=== PATIENT | female | born 1990 | race Caucasian/White ===

== ENCOUNTER 2020-08-27 00:28 | Observation (INO) ==
[2020-08-27] MEDS ORDERED: Ondansetron 4 mg VIAL 2 MG/ML 2 ml VIAL IV PRN (02:24)
[2020-08-27 03:14] LABS: Hepatitis B Surface Antigen Nonreactive (Nonreactive)
[2020-08-27 03:19] LABS: Hepatitis A Ab IgM Reactive (Negative)
[2020-08-27 03:20] LABS: Hepatitis B Core IgM Nonreactive (Nonreactive)
[2020-08-27 03:31] LABS: Hepatitis C Antibody Negative (Negative)
[2020-08-27] MEDS: Morphine 2 MG/ML SYRINGE IV PRN ×7 (03:33→20:47)
[2020-08-27] MEDS: NS 0.9% 1000 ml BAG 1,000 ML IV SCH ×2 (05:59→18:15)
[2020-08-27] MEDS: Pantoprazole VIAL 40 MG VIAL IV SCH (10:09)
[2020-08-27 11:38] LABS: Hematocrit 37 % (35-47); Hemoglobin 12.3 g/dL (12.0-16.0); Mean Corpuscular HGB Conc 33 g/dL (31-36); Mean Corpuscular Hemoglobin 30 pg (27-31); Mean Corpuscular Volume 88 fL (80-97); Mean Platelet Volume 8.7 fL (7.4-10.4); Platelet Count 263 10^3/uL (150-450); Red Blood Count 4.17 10^6 /uL (3.70-4.87); Red Cell Distribution Width 15 % (10-15); White Blood Count 6.4 10^3/uL (3.5-10.8)
[2020-08-27 11:44] LABS: INR 1.01 (0.82-1.09)
[2020-08-27 11:52] LABS: Albumin 3.2 g/dL (3.2-5.2); Calcium 8.1 mg/dL (8.6-10.3); Total Bilirubin 4.1 mg/dL (0.2-1.0)
[2020-08-27 11:58] LABS: Albumin/Globulin Ratio 1.1 (1-3); EGFR African American 177.8 (>60); EGFR Non-African American 146.9 (>60); Globulin 2.9 g/dL (2-4); Total Protein 6.1 g/dL (6.4-8.9)
[2020-08-27 12:45] LABS: HIV 4th Generation Nonreactive (Nonreactive)
[2020-08-27 13:11] LABS: ABS Basophils 0.2 10^3/ul (0-0.2); ABS Eosinophils 0.1 10^3/ul (0-0.6); ABS Lymphocytes 2.4 10^3/ul (1.0-4.8); ABS Monocytes 0.7 10^3/ul (0-0.8); ABS Neutrophils 2.9 10^3/ul (1.5-7.7); Eosinophil % 1.4 %; Lymphocyte % 38.4 %; Nucleated Red Blood Cells % 0.2
[2020-08-28] MEDS: NS 0.9% 1000 ml BAG 1,000 ML IV SCH (04:43)
[2020-08-28] MEDS: Morphine 2 MG/ML SYRINGE IV PRN ×4 (04:45→13:31)
[2020-08-28 06:35] LABS: ABS Basophils 0.1 10^3/ul (0-0.2); ABS Eosinophils 0.1 10^3/ul (0-0.6); ABS Lymphocytes 2.1 10^3/ul (1.0-4.8); ABS Monocytes 0.7 10^3/ul (0-0.8); ABS Neutrophils 2.1 10^3/ul (1.5-7.7); Eosinophil % 1.5 %; Hematocrit 36 % (35-47); Lymphocyte % 42.1 %; Mean Corpuscular HGB Conc 34 g/dL (31-36); Mean Corpuscular Hemoglobin 30 pg (27-31); Mean Corpuscular Volume 89 fL (80-97); Mean Platelet Volume 9.6 fL (7.4-10.4); Nucleated Red Blood Cells % 0.1; Platelet Count 240 10^3/uL (150-450); Red Cell Distribution Width 15 % (10-15); White Blood Count 5.1 10^3/uL (3.5-10.8)
[2020-08-28 06:49] LABS: Albumin 2.9 g/dL (3.2-5.2); BUN/Creatinine Ratio 9.8 (8-20); Calcium 8.2 mg/dL (8.6-10.3); EGFR African American 173.7 (>60); EGFR Non-African American 143.6 (>60); Globulin 2.9 g/dL (2-4); Potassium 4.2 mmol/L (3.5-5.0); Total Bilirubin 3.1 mg/dL (0.2-1.0); Total Protein 5.8 g/dL (6.4-8.9)
[2020-08-28] MEDS: Pantoprazole VIAL 40 MG VIAL IV SCH (07:55)
[2020-08-28 11:27] VITALS: BP 119/62
== END 2020-08-28 14:10 | disposition home or self-care (01) ==
LOC: ED 00:28 → MED 00:28
PROVIDERS: ADMIT Student in an Organized Health Care Education/Training Program; ATTEND Internal Medicine